=== PATIENT | female | born 1990 ===

== ENCOUNTER 2022-11-06 13:35 | Emergency (ER) | payer SELFPAY ==
[~2022-11-06] VITALS: Ht 155 cm; Wt 77.0 kg
[2022-11-06 14:09] LABS: BASOPHILS # (AUTO) 0.1 10^3/uL (0.0-0.1); BASOPHILS % (AUTO) 1 % (0-10); EOSINOPHILS # (AUTO) 0.3 10^3/uL (0.0-0.3); EOSINOPHILS % (AUTO) 3 % (0-10); HEMATOCRIT 39 % (35-52); HEMOGLOBIN 12.9 g/dL (11.5-16.0); LYMPHOCYTES # (AUTO) 3.5 10^3/uL (1.0-4.0); LYMPHOCYTES % (AUTO) 35 % (12-44); MEAN CORPUSCULAR HEMOGLOBIN 30 pg (25-34); MEAN CORPUSCULAR HGB CONC 33 g/dL (32-36); MEAN CORPUSCULAR VOLUME 90 fL (80-99); MEAN PLATELET VOLUME 10.7 fL (9.0-12.2); MONOCYTES # (AUTO) 0.6 10^3/uL (0.0-1.0); MONOCYTES % (AUTO) 6 % (0-12); NEUTROPHILS # (AUTO) 5.6 10^3/uL (1.8-7.8); NEUTROPHILS % (AUTO) 55 % (42-75); PLATELET COUNT 290 10^3/uL (130-400); WHITE BLOOD COUNT 10.1 10^3/uL (4.3-11.0)
[2022-11-06 14:44] LABS: ALBUMIN 3.9 GM/DL (3.2-4.5); BILIRUBIN,TOTAL 0.1 MG/DL (0.1-1.0); CALCIUM 8.8 MG/DL (8.5-10.1); CREATININE SERUM 0.72 MG/DL (0.60-1.30); POTASSIUM 3.5 MMOL/L (3.6-5.0); TOTAL PROTEIN 7.4 GM/DL (6.4-8.2)
--- NOTE | 2022-11-06 15:05 | ED Abdominal Pain ---
General Chief Complaint: OB < 20 WEEKS Stated Complaint: VAGINAL BLEEDING | 8WKS Nursing Triage Note: PT AMB TO ED BY POV WITH C/O VAGINAL BLEEDING. PT REPORTS SHE IS 2 MONTHS , BLEEDING BEGAN LAST NIGHT, WORSE THIS MORNING WELL ABD CRAMPING. LMP 08/25, . PT HAS NOT SEEN OB FOR THIS YET. Source of Information: Patient Exam Limitations: No Limitations History of Present Illness Date Seen by Provider: Nov 06, 2022 Time Seen by Provider: 14:46 Initial Comments This is a 31-year-old female G-3, P-2 who presented the ER with complaints of vaginal bleeding that started yesterday. Her last menstrual period was August 29, 2022 which puts her at apx 9 weeks and 5 days. Has not yet established with PCP or OBGYN. States she moved to . from [facility] 3.5 years ago. Has had 2 births, last 7 years ago. Denies any medical problems. Currently only takes PNV. No fever, chills, cough, shortness of breath, nausea, vomiting, abdominal pain. Reports light cramping, but is "ok" right now. Boyfriend is at bedside. Allergies and Home Medications Allergies Coded Allergies: No Known Drug Allergies (Unverified , 11/06/22) Patient Home Medication List Home Medication List Reviewed: Yes Review of Systems Review of Systems Constitutional: see HPI Past Xvmjhxg-Quwxoj-Ebvlme Hx Patient Social History Tobacco Use?: No Use of E-Cig and/or Vaping dev: No Substance use?: No Alcohol Use?: No Pt feels they are or have been: No Immunizations Up To Date Influenza Vaccine Up-to-Date: No; Not Current Past Medical History Last Menstrual Period: Aug 25, 2022 Physical Exam Vital Signs Vital Signs - First Documented 11/06/22 13:44 Temp 36.4 Pulse 91 Resp 18 B/P (MAP) 137/88 (104) Pulse Ox 100 O2 Delivery Room Air Capillary Refill : Less Than 3 Seconds Height/Weight/BMI Height: '" Weight: lbs. oz. kg; 32.00 BMI Method: General Appearance: WD/WN, no apparent distress HEENT: PERRL/EOMI, normal ENT inspection, TMs normal, pharynx normal Neck: full range of motion, normal inspection Respiratory: lungs clear, normal breath sounds, no respiratory distress, no accessory muscle use Cardiovascular: regular rate, rhythm, no murmur Gastrointestinal: normal bowel sounds, non tender, soft Extremities: normal range of motion, non-tender, normal inspection Pelvic: normal external exam, no cerv. motion tender, no masses, vaginal bleeding, other (closed OS) Neurologic/Psychiatric: no motor/sensory deficits, alert, normal mood/affect, oriented x 3 Skin: normal color, warm/dry Exam Comments LMP AUGUST 29 2022. Progress/Results/Core Measures Results/Orders Lab Results Laboratory Tests Test 11/06/22 14:02 Range/Units White Blood Count 10.1 4.3-11.0 10^3/uL Red Blood Count 4.30 3.80-5.11 10^6/uL Hemoglobin 12.9 11.5-16.0 g/dL Hematocrit 39 35-52 % Mean Corpuscular Volume 90 80-99 fL Mean Corpuscular Hemoglobin 30 25-34 pg Mean Corpuscular Hemoglobin Concent 33 32-36 g/dL Red Cell Distribution Width 11.9 10.0-14.5 % Platelet Count 290 130-400 10^3/uL Mean Platelet Volume 10.7 9.0-12.2 fL Immature Granulocyte % (Auto) 0 % Neutrophils (%) (Auto) 55 42-75 % Lymphocytes (%) (Auto) 35 12-44 % Monocytes (%) (Auto) 6 0-12 % Eosinophils (%) (Auto) 3 0-10 % Basophils (%) (Auto) 1 0-10 % Neutrophils # (Auto) 5.6 1.8-7.8 10^3/uL Lymphocytes # (Auto) 3.5 1.0-4.0 10^3/uL Monocytes # (Auto) 0.6 0.0-1.0 10^3/uL Eosinophils # (Auto) 0.3 0.0-0.3 10^3/uL Basophils # (Auto) 0.1 0.0-0.1 10^3/uL Immature Granulocyte # (Auto) 0.0 0.0-0.1 10^3/uL Sodium Level 139 135-145 MMOL/L Potassium Level 3.5 L 3.6-5.0 MMOL/L Chloride Level 109 H 98-107 MMOL/L Carbon Dioxide Level 23 21-32 MMOL/L Anion Gap 7 5-14 MMOL/L Blood Urea Nitrogen 10 7-18 MG/DL Creatinine 0.72 0.60-1.30 MG/DL Estimat Glomerular Filtration Rate 115 BUN/Creatinine Ratio 14 Glucose Level 94 70-105 MG/DL Calcium Level 8.8 8.5-10.1 MG/DL Corrected Calcium 8.9 8.5-10.1 MG/DL Total Bilirubin 0.1 0.1-1.0 MG/DL Aspartate Amino Transf (AST/SGOT) 11 5-34 U/L Alanine Aminotransferase (ALT/SGPT) 14 0-55 U/L Alkaline Phosphatase 105 40-136 U/L Total Protein 7.4 6.4-8.2 GM/DL Albumin 3.9 3.2-4.5 GM/DL Human Chorionic Gonadotropin, Quant 6846 H <5 MIU/ML My Orders Orders - REG [employer] Cbc With Automated Diff (11/06/22 13:57) Hcg,Quantitative (11/06/22 13:57) Abo Rh Type (11/06/22 13:57) Ed Iv/Invasive Line Start (11/06/22 13:57) Comprehensive Metabolic Panel (11/06/22 13:57) Us Ob<14 Wks Sngle W/Transvag (11/06/22 13:57) Vital Signs/I&O 11/06/22 11/06/22 13:44 16:38 Temp 36.4 36.4 Pulse 91 74 Resp 18 18 B/P (MAP) 137/88 (104) 122/77 Pulse Ox 100 100 O2 Delivery Room Air Room Air Blood Pressure Mean: 104 Progress Progress Note #1: Progress Note Upon arrival she is awake and alert, no acute distress. [facility] [employer] services were utilized to obtain HPI. Additionally her boyfriend is at bedside and contributed to HPI. Denies need for abdominal discomfort. Initial concern for threatened miscarriage, orders placed for CBC, CMP, ABO Rh, UA, ultrasound. Labs reviewed and relatively unremarkable. Her WBC is normal and her H&H is stable at 12.9 and Hct-39. Her ABO Rh is O+, no need for RhoGAM if concerns for miscarriage. Preliminary ultrasound reviewed and concerning for threatened miscarriage, unable to detect heart rate, no pole, currently measuring at 6 weeks which is significantly less than projected gestational age. Currently pending radiology review. Due to system maintenance unable to have final report of ultrasound, results still pending. On exam her cervix is closed, does have blood at the cervical os and a small amount in the vaginal vault. No evidence of parts of conception on exam. Discussed that she has a threatened miscarriage at this time, she has follow-up with OB In 2 days, will have her rest, nothing in vagina, and close follow up. To return to ER if she has new or worsening symptoms. Will call with results of final radiology read when available. They are agreeable with discharging home, close follow-up and verbalized understanding of strict return precautions. 2200: Checked for OB US results. No results at this time. Progress Note #2: Time: 12:34 Progress Note 11/07/2022 1234: Was able to make contact with boyfriend per patient request and give ultrasound results. Diagnostic Imaging Diagonstic Imaging: Ultrasound Comments [facility]. [place], [place] NAME: AMIE MURRIETA [facility] REC#: [id number] PT STATUS: DEP ER : 1990 PHYSICIAN: REG SAWYER APRN ADMIT DATE: 11/06/22/ER Signed Date of Exam:11/06/22 US OB<14 WKS SNGLE W/TRANSVAG HISTORY: , vaginal bleeding COMPARISON: None TECHNIQUE: Transabdominal and transvaginal ultrasound of the gravid uterus FINDINGS: Images are available for review at 7:00 AM on 11/07/2022. There is a intrauterine gestational sac. There may be a small pole which measures 3.3 mm corresponding with 6 weeks and 0 days gestation. A yolk sac is not seen at this time. Mean sac diameter measures 1.7 cm corresponding with 6 weeks and 4 days gestation. Estimated gestational age is 6 weeks and 2 days, with an estimated date of delivery of 06/30/2023. No heart rate is acquired at this time. The gestational sac appears normal overall in shape and position. No free fluid is seen. Maternal ovaries are not seen due to bowel gas. IMPRESSION: 1. Single intrauterine gestation measuring at 6 weeks and 2 days. No heart tones can be seen at this time. Findings are suspicious but not diagnostic of failure. Recommend continued follow-up. Dictated by: Dictated on workstation # [id number] Dict: 11/07/22 0710 Trans: 11/07/22 1105 [facility] [id number] Interpreted by: HEATHER CARVAJAL MD Electronically signed by: HEATHER CARVAJAL MD 11/07/22 1105 Departure Impression Primary Impression: Threatened miscarriage in early Disposition: HOME, SELF-CARE Condition: Improved Departure-Patient Inst. Decision time for Depature: 16:15 Referrals: NO,LOCAL PHYSICIAN (PCP/Family) Primary Care Physician Patient Instructions: Bleeding In Early , Threatened Miscarriage Add. Discharge Instructions: Plan: 1. Follow-up with your [facility] on as previously scheduled. 2. Stay at home and rest, nothing in the vagina, no sexual intercourse. 3. May take Tylenol [id number] as needed for discomfort per package. 4. If you have any increased bleeding, pain, concerns please return to the ER. 5. Return for any new, concerning, worsening symptoms. 6. We will call you with final ultrasound report. All discharge instructions reviewed with patient and/or family. Voiced understanding. Work/School Note: Work Release Form Date Seen in the Emergency Department: Nov 06, 2022 Return to Work: Nov 09, 2022 Restrictions: No Restrictions [employer] Nov 06, 2022 15:05
[2022-11-06 16:38] VITALS: BP 122/77
--- NOTE | 2022-11-07 07:19 | Diagnostic Imaging Report ---
HISTORY: , vaginal bleeding COMPARISON: None TECHNIQUE: Transabdominal and transvaginal ultrasound of the gravid uterus FINDINGS: Images are available for review at 7:00 AM on 11/07/2022. There is a intrauterine gestational sac. There may be a small pole which measures 3.3 mm corresponding with 6 weeks and 0 days gestation. A yolk sac is not seen at this time. Mean sac diameter measures 1.7 cm corresponding with 6 weeks and 4 days gestation. Estimated gestational age is 6 weeks and 2 days, with an estimated date of delivery of 06/30/2023. No heart rate is acquired at this time. The gestational sac appears normal overall in shape and position. No free fluid is seen. Maternal ovaries are not seen due to bowel gas. IMPRESSION: 1. Single intrauterine gestation measuring at 6 weeks and 2 days. No heart tones can be seen at this time. Findings are suspicious but not diagnostic of failure. Recommend continued follow-up. Dictated by: Dictated on workstation # [id number]
== END 2022-11-06 16:40 | disposition home or self-care (01) ==
LOC: ER 13:43
DX: O20.0 Threatened abortion (principal); Z28.310 Unvaccinated for COVID-19; Z3A.01 Less than 8 weeks gestation of pregnancy
CPT/HCPCS: 36415; 76801; 76817; 80053; 84702; 85025; 86900; 86901